=== PATIENT | male | born 1965 | race African-American/Black ===

== ENCOUNTER 2017-06-14 12:23 | Emergency (ER) | payer MEDICARE, MEDICAID ==
[~2017-06-14] VITALS: Ht 182.9 cm; Wt 100.0 kg
[~2017-06-14 12:23] MED LIST: LORA-249 PO; aspirin; gabapentin; hctz; lisinopril; metoprolol; zocor
[2017-06-14] MEDS ORDERED: MORPHINE SULFATE 4 MG/ML CPJ (NOT FOR IM USE) IV STA (13:07)
[2017-06-14] MEDS ORDERED: NITROGLYCERIN OINT 1GM/INCH UDPKT TD STA (13:07)
[2017-06-14] MEDS ORDERED: ASPIRIN 325MG EC TABLET PO ONE (13:15)
[2017-06-14] MEDS ORDERED: LORAZEPAM 2MG/ML CPJ IV ONE (13:15)
[2017-06-14 13:30] LABS: BASOPHILS % 1.1 % (0.0-2.0); EOSINOPHILS % 0.7 % (0.0-5.0); HEMATOCRIT. 46.7 % (42.0-52.0); HEMOGLOBIN. 15.9 g/dL (14.0-18.0); LYMPHOCYTES % 27.4 % (20.0-50.0); MEAN CORPUSCULAR HEMOGLOBIN 31.2 pg (28.0-32.0); MEAN CORPUSCULAR VOLUME 91.4 fL (80.0-94.0); MEAN PLATELET VOLUME 8.5 fl (7.4-10.4); NEUTROPHILS % 61.8 % (40.0-76.0); PLATELET 214 x1000/uL (130-400); RED BLOOD CELL COUNT 5.11 mill/uL (4.7-6.1); RED CELL DISTRIBUTION WIDTH 14.3 % (11.6-14.6)
[2017-06-14 13:41] LABS: CARBON DIOXIDE 30 mEq/L (21-32); CHLORIDE 105 mEq/L (98-107); TROPONIN I < 0.02 ng/mL (0.00-0.04)
[2017-06-14] MEDS ORDERED: MORPHINE SULFATE 10 MG/ML CPJ IM ONE (16:30)
[2017-06-14] MEDS ORDERED: DIPHENHYDRAMINE 50MG/ML VIAL IM ONE (16:30)
[2017-06-14 17:00] VITALS: BP 141/82
== END 2017-06-14 19:04 | disposition left against medical advice (07) ==
LOC: ER 13:21 → CANRESERV 18:09 → ENRESERV 18:09 → CANRESERV 18:15 → ER 19:04 → CANBEDREQ 21:20
DX: R07.89 Other chest pain (principal); R11.0 Nausea; M54.9 Dorsalgia, unspecified; G89.29 Other chronic pain; F41.9 Anxiety disorder, unspecified; I25.10 Atherosclerotic heart disease of native coronary artery without angina pectoris; I11.9 Hypertensive heart disease without heart failure; I25.2 Old myocardial infarction; Z79.82 Long term (current) use of aspirin; Z88.6 Allergy status to analgesic agent
CPT/HCPCS: 36415; 71010; 80053; 83690; 84484; 85025; 93005; 96372; 96374; 99285; J1200; J2060; J2270

== ENCOUNTER 2023-07-27 17:16 | Emergency (ER) | payer MEDICARE, MEDICAID ==
[~2023-07-27] VITALS: Ht 182.9 cm; Wt 109.0 kg
[2023-07-27 17:26] VITALS: TEMP 98.5; O2SAT 99
[2023-07-27 20:47] LABS: BASOPHILS % 0.7 % (0.0-2.0); EOSINOPHILS % 0.5 % (0.0-5.0); HEMATOCRIT. 45.7 % (42.0-52.0); HEMOGLOBIN. 15.6 g/dL (14.0-18.0); LYMPHOCYTES % 43.2 % (20.0-50.0); MEAN CORPUSCULAR HEMOGLOBIN 30.3 pg (28.0-32.0); MEAN CORPUSCULAR HGB CONC 34.1 g/dL (31.0-37.0); MONOCYTES % 9.4 % (2.0-8.0); NEUTROPHILS % 46.2 % (40.0-76.0); PLATELET 309 x1000/uL (130-400); RED BLOOD CELL COUNT 5.14 mill/uL (4.7-6.1); RED CELL DISTRIBUTION WIDTH 16.7 % (11.6-14.6); WHITE BLOOD COUNT 8.5 x1000/uL (4.5-11.0)
[2023-07-27 20:59] LABS: ALANINE AMINOTRANSFERASE 50 IU/L (10-49); ALBUMIN 4.2 g/dL (3.2-4.8); ASPARTATE AMINOTRANSFERASE 27 IU/L (<34); BILIRUBIN TOTAL 0.3 mg/dL (0.1-1.0); CARBON DIOXIDE 27 mEq/L (21-32); CHLORIDE 104 mEq/L (98-107); CREATININE 1.1 mg/dL (0.6-1.3); GLUCOSE 95 mg/dL (70-105); PROTEIN TOTAL 6.6 g/dL (6.0-8.3); SODIUM 139 mEq/L (136-145); UREA NITROGEN BLOOD 25 mg/dL (9-23)
[2023-07-27] MEDS ORDERED: HYDROMORPHONE HCL/PF 2MG/ML CPJ IM ONE ×2 (22:00→22:15)
[2023-07-27] MEDS ORDERED: DIPHENHYDRAMINE 50MG/ML VIAL IM ONE (22:00)
[2023-07-27] MEDS ORDERED: MED4 MT ×2 (22:11)
[2023-07-28] MEDS ORDERED: DIPHENHYDRAMINE 50MG/ML VIAL IM NR (00:15)
[2023-07-28 00:53] VITALS: BP 165/122; PULSE 110; RESP 16
[2023-07-28] MEDS ORDERED: HYDRALAZINE HCL 100MG TABLET PO ONE (01:30)
[2023-07-28] MEDS ORDERED: LABE200T9 PO (22:01)
[2023-07-28] MEDS ORDERED: HYDR100T26 PO (22:01)
[2023-07-28] MEDS ORDERED: FURO-151 PO (22:01)
[2023-07-28] MEDS ORDERED: GABA-532 PO (22:01)
[2023-07-28] MEDS ORDERED: CLON0.3T PO (22:01)
[2023-07-28] MEDS ORDERED: PREG200C PO (22:01)
== END 2023-07-27 22:08 | disposition home or self-care (01) ==
LOC: ER 17:16
DX: G35 Multiple sclerosis (principal); I10 Essential (primary) hypertension; Z79.899 Other long term (current) drug therapy; Z88.8 Allergy status to other drugs, medicaments and biological substances
CPT/HCPCS: 99284; 80053; 85025; 36415; J1170; 96372; J1200

== ENCOUNTER 2023-08-08 07:16 | Inpatient (IN) | payer MEDICARE, OTHER ==
[~2023-08-08] VITALS: Ht 180.3 cm; Wt 82.6 kg
[~2023-08-08 07:16] MED LIST changes: +CLON0.3T PO; +FURO-151 PO; +GABA-532 PO; +HYDR100T26 PO; +LABE200T9 PO; -LORA-249 PO; +PREG200C PO; -aspirin; -gabapentin; -hctz; -lisinopril; -metoprolol; -zocor
[2023-08-08] MEDS ORDERED: MORPHINE SULFATE 4 MG/ML CPJ (NOT FOR IM USE) IV STA (08:07)
[2023-08-08] MEDS ORDERED: ASPIRIN 325MG EC TABLET PO ONE (08:15)
[2023-08-08 10:00] LABS: BASOPHILS % 0.5 % (0.0-2.0); EOSINOPHILS % 0.1 % (0.0-5.0); HEMATOCRIT. 47.7 % (42.0-52.0); HEMOGLOBIN. 15.5 g/dL (14.0-18.0); LYMPHOCYTES % 15.6 % (20.0-50.0); MEAN CORPUSCULAR HEMOGLOBIN 30.3 pg (28.0-32.0); MEAN CORPUSCULAR HGB CONC 32.5 g/dL (31.0-37.0); MEAN CORPUSCULAR VOLUME 93.2 fL (80.0-94.0); MONOCYTES % 6.2 % (2.0-8.0); NEUTROPHILS % 77.6 % (40.0-76.0); RED BLOOD CELL COUNT 5.12 mill/uL (4.7-6.1); RED CELL DISTRIBUTION WIDTH 16.7 % (11.6-14.6); WHITE BLOOD COUNT 12.2 x1000/uL (4.5-11.0)
[2023-08-08 10:11] LABS: DIFFERENTIAL COMMENT 1
[2023-08-08 10:22] LABS: ALANINE AMINOTRANSFERASE 39 IU/L (10-49); ALBUMIN 4.6 g/dL (3.2-4.8); ASPARTATE AMINOTRANSFERASE 27 IU/L (<34); BILIRUBIN TOTAL 0.6 mg/dL (0.1-1.0); CALCIUM 9.8 mg/dL (8.7-10.4); CARBON DIOXIDE 21 mEq/L (21-32); CHLORIDE 103 mEq/L (98-107); CREATININE 0.9 mg/dL (0.6-1.3); GLUCOSE 117 mg/dL (70-105); POTASSIUM 4.3 mEq/L (3.5-5.1); PROTEIN TOTAL 7.2 g/dL (6.0-8.3); SODIUM 138 mEq/L (136-145); UREA NITROGEN BLOOD 13 mg/dL (9-23)
[2023-08-08 10:29] LABS: TROPONIN I HIGH SENSITIVITY 61 ng/L (3.0-53)
[2023-08-08 14:19] LABS: PLATELET 165 x1000/uL (130-400)
[2023-08-08] MEDS ORDERED: LIDOCAINE HCL 1% 10 MG/ML 10ML VIAL ONE (14:26)
[2023-08-08] MEDS ORDERED: IPRATROPIUM/ALBUTEROL 0.5-3(2.5)MG/3ML NEB HHN PRN (14:45)
[2023-08-08] MEDS ORDERED: MORPHINE SULFATE 2 MG/ML CPJ (NOT FOR IM USE) IV PRN (14:45)
[2023-08-08] MEDS ORDERED: ACETAMINOPHEN 325MG TABLET PO PRN ×2 (14:45)
[2023-08-08] MEDS ORDERED: CLONIDINE 0.1MG TABLET PO PRN (14:45)
[2023-08-08] MEDS ORDERED: ONDANSETRON HCL 4MG/2ML INJ IV PRN (14:45)
[2023-08-08] MEDS: ENOXAPARIN 40MG/0.4ML SYR SUBCUT SCH (15:00)
[2023-08-08] MEDS ORDERED: MORPHINE SULFATE 4 MG/ML CPJ (NOT FOR IM USE) IV NR (16:00)
[2023-08-08] MEDS ORDERED: ASPIRIN 325MG EC TABLET PO NR (16:00)
[2023-08-08 16:20] LABS: CLARITY URINE CLEAR (CLEAR); COLOR URINE YELLOW (YELLOW); GLUCOSE URINE NEGATIVE (NEGATIVE); KETONES URINE 2+ (NEGATIVE); LEUKOCYTE ESTERASE URINE NEGATIVE (NEGATIVE); NITRITE URINE NEGATIVE (NEGATIVE); OCCULT BLOOD URINE NEGATIVE (NEGATIVE); PROTEIN URINE 1+ (NEGATIVE); SPECIFIC GRAVITY URINE 1.018 (1.005-1.030); UROBILINOGEN URINE 0.2 E.U./dL (0.2-1.0)
[2023-08-08 16:33] LABS: *AMPHETAMINES SCREEN URINE NEGATIVE (NEGATIVE); *BARBITURATES SCREEN URINE NEGATIVE (NEGATIVE); *BENZODIAZEPINES SCREEN URINE NEGATIVE (NEGATIVE); *COCAINE SCREEN URINE PRESUMPTIVE POSITIVE (NEGATIVE); CANNABINOID URINE SCREEN PRESUMPTIVE POSITIVE (NEGATIVE); ECSTASY MDMA SCREEN URINE NEGATIVE (NEGATIVE); METHADONE URINE SCREEN Neg (NEGATIVE); OPIATES URINE SCREEN PRESUMPTIVE POSITIVE (NEGATIVE); PHENCYCLIDINE URINE SCREEN NEGATIVE (NEGATIVE)
[2023-08-08 16:42] LABS: BACTERIA URINE NONE SEEN; RBC URINE 0-2 /hpf (0-2); SQUAMOUS EPITHELIAL CELL URINE 1+ /lpf (RARE/1+); WBC URINE 0-2 /hpf (0-2)
[2023-08-08 16:43] LABS: HYALINE CASTS URINE 0-5 /lpf
[2023-08-08] MEDS: HYDROMORPHONE HCL/PF 2MG/ML CPJ IV PRN (18:44)
[2023-08-08] MEDS ORDERED: NALOXONE HCL 0.4MG/ML VIAL IV PRN (21:00)
[2023-08-08 21:30] VITALS: BP 184/129; PULSE 93; RESP 20; TEMP 97.7
[2023-08-08] MEDS: GABAPENTIN 300MG CAPSULE PO SCH (22:19)
[2023-08-08] MEDS: CLONIDINE 0.3MG TABLET PO SCH (22:20)
[2023-08-08] MEDS: HYDRALAZINE HCL 100MG TABLET PO SCH (22:20)
[2023-08-09] VITALS: BP 145/99; PULSE 92; RESP 21; TEMP 97.5
[2023-08-09 00:43] LABS: TROPONIN I HIGH SENSITIVITY 36 ng/L (3.0-53)
[2023-08-09 04:00] VITALS: BP 163/118; PULSE 82; RESP 21; TEMP 98.5
[2023-08-09 04:15] LABS: CALCIUM 8.9 mg/dL (8.7-10.4); CARBON DIOXIDE 24 mEq/L (21-32); CHLORIDE 105 mEq/L (98-107); GLUCOSE 106 mg/dL (70-105); SODIUM 142 mEq/L (136-145); UREA NITROGEN BLOOD 20 mg/dL (9-23)
[2023-08-09] MEDS: GABAPENTIN 300MG CAPSULE PO SCH ×3 (06:45→21:44)
[2023-08-09] MEDS: CLONIDINE 0.3MG TABLET PO SCH ×3 (06:45→21:44)
[2023-08-09] MEDS: HYDRALAZINE HCL 100MG TABLET PO SCH ×3 (06:45→21:45)
[2023-08-09 08:00] VITALS: BP 157/100; PULSE 58; RESP 18; TEMP 97
[2023-08-09] MEDS: FUROSEMIDE 40MG/4ML VIAL IV SCH (10:39)
[2023-08-09] MEDS: PREGABALIN 50 MG CAPSULE PO SCH (10:39)
[2023-08-09] MEDS: LABETALOL HCL 200MG TABLET PO SCH ×2 (10:41→21:45)
[2023-08-09] MEDS: ASPIRIN 81MG EC TABLET PO SCH (10:43)
[2023-08-09] MEDS: HYDROMORPHONE HCL/PF 2MG/ML CPJ IV PRN ×2 (10:45→17:58)
[2023-08-09 12:00] VITALS: BP 107/83; PULSE 66; RESP 18; TEMP 97.7
[2023-08-09] MEDS: ENOXAPARIN 40MG/0.4ML SYR SUBCUT SCH (15:41)
[2023-08-09 16:00] VITALS: BP 150/90; PULSE 72; RESP 18; TEMP 96.6
[2023-08-09 20:00] VITALS: BP 128/85; PULSE 80; RESP 20; TEMP 97.3
[2023-08-10] VITALS (7 sets, daily range): BP systolic 112–169; BP diastolic 70–98; PULSE 55–91; RESP 16–20; TEMP 96.1–97.9; O2SAT 98
[2023-08-10] MEDS: HYDROMORPHONE HCL/PF 2MG/ML CPJ IV PRN ×3 (00:40→16:59)
[2023-08-10] MEDS: HYDRALAZINE HCL 100MG TABLET PO SCH ×2 (05:50→10:06)
[2023-08-10] MEDS: CLONIDINE 0.3MG TABLET PO SCH ×2 (05:50→16:57)
[2023-08-10] MEDS: GABAPENTIN 300MG CAPSULE PO SCH ×2 (05:51→16:57)
[2023-08-10] MEDS: LABETALOL HCL 200MG TABLET PO SCH (09:00)
[2023-08-10] MEDS: PREGABALIN 50 MG CAPSULE PO SCH (10:06)
[2023-08-10] MEDS: FUROSEMIDE 40MG/4ML VIAL IV SCH (10:06)
[2023-08-10] MEDS: ASPIRIN 81MG EC TABLET PO SCH (10:06)
[2023-08-10] MEDS: ENOXAPARIN 40MG/0.4ML SYR SUBCUT SCH (16:58)
== END 2023-08-10 19:45 | disposition home or self-care (01) | DRG 917 ==
LOC: ER 07:16 → 5WST 11:43 → EDBEDREQ 11:46 → 8WST 20:42
PROVIDERS: ADMIT Preventive Medicine Clinical Informatics; ATTEND Preventive Medicine Clinical Informatics
PROC: 05HY33Z Insertion of Infusion Device into Upper Vein, Percutaneous Approach (ICD-10-PCS; principal; 2023-08-08)
PROC: B54MZZA Ultrasonography of Right Upper Extremity Veins, Guidance (ICD-10-PCS; 2023-08-08)
DX: T40.5X1A Poisoning by cocaine, accidental (unintentional), initial encounter (principal); I21.A1 Myocardial infarction type 2; I16.0 Hypertensive urgency; I11.0 Hypertensive heart disease with heart failure; I50.9 Heart failure, unspecified; F19.10 Other psychoactive substance abuse, uncomplicated; F10.20 Alcohol dependence, uncomplicated; F14.10 Cocaine abuse, uncomplicated; G35 Multiple sclerosis; Z79.899 Other long term (current) drug therapy; Z86.73 Personal history of transient ischemic attack (TIA), and cerebral infarction without residual deficits; Z79.82 Long term (current) use of aspirin; Y92.89 Other specified places as the place of occurrence of the external cause
CPT/HCPCS: 36415; 36573; 71045; 80048; 80053; 80305; 81003; 83880; 84484; 85025; 93005; 99285; C1725; J1170; J1650; J1940; J2270; J3490

== ENCOUNTER 2023-12-07 22:34 | Emergency (ER) | payer MEDICARE, OTHER ==
[~2023-12-07] VITALS: Ht 175.3 cm; Wt 100.0 kg
[2023-12-07 22:37] VITALS: TEMP 97.7; O2SAT 100
[2023-12-08 01:45] VITALS: BP 184/101; PULSE 114; RESP 18
[2023-12-08] MEDS: MORPHINE SULFATE 4 MG/ML INJ (FOR IV/IM USE) IM ONE (01:45)
== END 2023-12-08 01:40 | disposition home or self-care (01) ==
LOC: ER 22:34
DX: G89.29 Other chronic pain (principal); M54.9 Dorsalgia, unspecified; I11.0 Hypertensive heart disease with heart failure; I50.9 Heart failure, unspecified; I25.2 Old myocardial infarction; Z86.73 Personal history of transient ischemic attack (TIA), and cerebral infarction without residual deficits; Z79.899 Other long term (current) drug therapy
CPT/HCPCS: 99283; 96372; J2270

== ENCOUNTER 2024-01-22 06:25 | Emergency (ER) | payer MEDICARE, MEDICAID ==
[~2024-01-22] VITALS: Ht 182.9 cm; Wt 91.0 kg
[~2024-01-22 06:25] MED LIST changes: +ASPI-1160 PO; -FURO-151 PO; -GABA-532 PO; +GLIP5TAB22 PO; -HYDR100T26 PO; -LABE200T9 PO; -PREG200C PO; +PREG300C20 PO; +ROSU20TA2 PO; +[UNRECOGNIZED DRUG - CODE] PO
[2024-01-22 06:28] VITALS: O2SAT 96
[2024-01-22] MEDS ORDERED: MAGNESIUM/ALUMINUM HYDROXIDE/SIMETHICONE 30ML UDC PO ONE (07:00)
[2024-01-22] MEDS ORDERED: PANTOPRAZOLE 40MG DR TABLET PO ONE (07:00)
[2024-01-22 07:18] LABS: CARBON DIOXIDE 23 mEq/L (21-32); CHLORIDE 105 mEq/L (98-107); POTASSIUM 4.6 mEq/L (3.5-5.1); SODIUM 138 mEq/L (136-145)
[2024-01-22 07:19] LABS: CALCIUM 9.8 mg/dL (8.7-10.4)
[2024-01-22 07:24] LABS: CREATININE 1.3 mg/dL (0.6-1.3); GLUCOSE 306 mg/dL (70-105); TROPONIN I HIGH SENSITIVITY 27 ng/L (3.0-53); UREA NITROGEN BLOOD 22 mg/dL (9-23)
[2024-01-22 07:28] LABS: ETHANOL BLOOD < 10 mg/dL (<10)
[2024-01-22] MEDS: PANTOPRAZOLE 40MG DR TABLET PO NR (10:46)
[2024-01-22] MEDS: MAGNESIUM/ALUMINUM HYDROXIDE/SIMETHICONE 30ML UDC PO NR (10:46)
[2024-01-22 11:00] LABS: BASOPHILS % 0.5 % (0.0-2.0); EOSINOPHILS % 0.1 % (0.0-5.0); HEMATOCRIT. 45.3 % (42.0-52.0); HEMOGLOBIN. 14.8 g/dL (14.0-18.0); LYMPHOCYTES % 17.8 % (20.0-50.0); MEAN CORPUSCULAR HEMOGLOBIN 30.7 pg (28.0-32.0); MEAN CORPUSCULAR HGB CONC 32.6 g/dL (31.0-37.0); MEAN CORPUSCULAR VOLUME 94.3 fL (80.0-94.0); MEAN PLATELET VOLUME 8.3 fl (7.4-10.4); MONOCYTES % 8.7 % (2.0-8.0); NEUTROPHILS % 72.9 % (40.0-76.0); PLATELET 281 x1000/uL (130-400); RED CELL DISTRIBUTION WIDTH 16.4 % (11.6-14.6); WHITE BLOOD COUNT 10.9 x1000/uL (4.5-11.0)
[2024-01-22 11:07] LABS: CLARITY URINE CLEAR (CLEAR); COLOR URINE YELLOW (YELLOW); GLUCOSE URINE 3+ (NEGATIVE); KETONES URINE TRACE (NEGATIVE); LEUKOCYTE ESTERASE URINE NEGATIVE (NEGATIVE); NITRITE URINE NEGATIVE (NEGATIVE); OCCULT BLOOD URINE NEGATIVE (NEGATIVE); PROTEIN URINE 1+ (NEGATIVE); SPECIFIC GRAVITY URINE 1.025 (1.005-1.030); UROBILINOGEN URINE 0.2 E.U./dL (0.2-1.0)
[2024-01-22 11:15] LABS: PARTIAL THROMBOPLASTIN TIME 25.1 sec (23.4-31.0); PROTHROMBIN TIME 10.8 sec (9.6-11.0)
[2024-01-22 11:23] LABS: TROPONIN I HIGH SENSITIVITY 30 ng/L (3.0-53)
[2024-01-22 11:28] LABS: BACTERIA URINE TRACE; SQUAMOUS EPITHELIAL CELL URINE NONE SEEN /lpf (RARE/1+)
[2024-01-22 11:29] LABS: RBC URINE 0-2 /hpf (0-2); WBC URINE 0-2 /hpf (0-2)
[2024-01-22 11:30] LABS: *AMPHETAMINES SCREEN URINE NEGATIVE (NEGATIVE); *BARBITURATES SCREEN URINE NEGATIVE (NEGATIVE); *BENZODIAZEPINES SCREEN URINE NEGATIVE (NEGATIVE); *COCAINE SCREEN URINE PRESUMPTIVE POSITIVE (NEGATIVE); CANNABINOID URINE SCREEN PRESUMPTIVE POSITIVE (NEGATIVE); ECSTASY MDMA SCREEN URINE NEGATIVE (NEGATIVE); METHADONE URINE SCREEN NEGATIVE (NEGATIVE); OPIATES URINE SCREEN NEGATIVE (NEGATIVE); PHENCYCLIDINE URINE SCREEN NEGATIVE (NEGATIVE)
[2024-01-22] MEDS: ACETAMINOPHEN 1000MG/100ML 100 ML IV ONE (12:45)
[2024-01-22] MEDS: METHOCARBAMOL 750MG TABLET PO SCH (12:45)
[2024-01-22 14:12] VITALS: BP 149/101; PULSE 99; RESP 15; TEMP 98.8
== END 2024-01-22 15:30 | disposition home or self-care (01) ==
LOC: ER 06:25
DX: R07.89 Other chest pain (principal); R00.0 Tachycardia, unspecified; I50.9 Heart failure, unspecified; I25.2 Old myocardial infarction; Z79.899 Other long term (current) drug therapy
CPT/HCPCS: 36415; 71045; 80048; 80305; 80320; 81003; 83880; 84484; 85025; 93005; 99285; G0480; J0131

== ENCOUNTER 2025-01-28 00:30 | Inpatient (IN) | payer MEDICARE, MEDICAID ==
[~2025-01-28] VITALS: Ht 177.8 cm; Wt 107.7 kg
[2025-01-28 00:47] VITALS: O2SAT 99
[2025-01-28] MEDS ORDERED: MORPHINE SULFATE 4 MG/ML INJ (FOR IV/IM USE) IV STA (01:14)
[2025-01-28] MEDS ORDERED: METHYLPREDNISOLONE 40MG/ML INJ IV ONE (01:15)
[2025-01-28] MEDS: MORPHINE SULFATE 4 MG/ML INJ (FOR IV/IM USE) IV NR (03:14)
[2025-01-28] MEDS: ONDANSETRON HCL 4MG/2ML INJ IV STA (03:14)
[2025-01-28] MEDS: METHYLPREDNISOLONE SOD SUCC 1,000 MG in DEXT 5% WATER 250 ML IV NR (03:15)
[2025-01-28] MEDS: ONDANSETRON HCL 4MG/2ML INJ IV NR (03:21)
[2025-01-28] MEDS: SODIUM CHLORIDE 0.9% 1,000 ML IV ONE (03:21)
[2025-01-28] MEDS: DIPHENHYDRAMINE 50MG/ML VIAL IV ONE (03:24)
[2025-01-28 03:32] LABS: BASOPHILS % 0.6 % (0.0-2.0); EOSINOPHILS % 0.2 % (0.0-5.0); HEMATOCRIT. 42.0 % (42.0-52.0); HEMOGLOBIN. 13.9 g/dL (14.0-18.0); LYMPHOCYTES % 18.9 % (20.0-50.0); MEAN PLATELET VOLUME 7.7 fl (7.4-10.4); MONOCYTES % 8.3 % (2.0-8.0); NEUTROPHILS % 72.0 % (40.0-76.0); PLATELET 404 x1000/uL (130-400); RED BLOOD CELL COUNT 4.82 mill/uL (4.7-6.1); RED CELL DISTRIBUTION WIDTH 15.6 % (11.6-14.6)
[2025-01-28 03:52] LABS: CREATININE 1.1 mg/dL (0.6-1.3)
[2025-01-28 03:53] LABS: UREA NITROGEN BLOOD 14 mg/dL (9-23)
[2025-01-28 03:55] LABS: TROPONIN I HIGH SENSITIVITY 9 ng/L (3.0-53)
[2025-01-28] MEDS: MORPHINE SULFATE 4 MG/ML INJ (FOR IV/IM USE) IV ONE (04:30)
[2025-01-28] MEDS: DIPHENHYDRAMINE 50MG/ML VIAL IV NR (04:53)
[2025-01-28] MEDS ORDERED: CLONIDINE 0.1MG TABLET PO PRN (06:45)
[2025-01-28] MEDS: HYDROCODONE/ACETAMINOPHEN 10/325MG TABLET PO PRN (07:21)
[2025-01-28 08:00] VITALS: BP 156/110; PULSE 94; RESP 18; TEMP 36.5; O2SAT 97
[2025-01-28] MEDS: HYDRALAZINE HCL 100MG TABLET PO SCH (10:02)
[2025-01-28] MEDS: FUROSEMIDE 40MG TABLET PO SCH (10:02)
[2025-01-28] MEDS: METOPROLOL TARTRATE 50MG TABLET PO SCH (10:02)
[2025-01-28 12:00] VITALS: BP 132/90; PULSE 65; RESP 18; TEMP 36.6; O2SAT 97
[2025-01-28] MEDS: ENOXAPARIN 40MG/0.4ML SYR SUBCUT SCH (13:00)
[2025-01-28] MEDS: TAMSULOSIN HCL 0.4MG SR CAPSULE PO SCH (13:36)
[2025-01-28] MEDS ORDERED: NALOXONE HCL 0.4MG/ML VIAL IV PRN (14:30)
[2025-01-28 16:00] VITALS: BP 134/79; PULSE 71; RESP 18; TEMP 36.6; O2SAT 97
[2025-01-28 20:00] VITALS: BP 133/76; PULSE 83; RESP 20; TEMP 35.9; O2SAT 95
[2025-01-28] MEDS: ENOXAPARIN 30MG/0.3ML SYR SUBCUT SCH (21:33)
[2025-01-28] MEDS: ZOLPIDEM TARTRATE 5MG TABLET PO PRN (21:34)
[2025-01-28] MEDS: ATORVASTATIN CALCIUM 40MG TABLET PO SCH (21:34)
[2025-01-28 21:40] LABS: *AMPHETAMINES SCREEN URINE NEGATIVE (NEGATIVE); *BARBITURATES SCREEN URINE NEGATIVE (NEGATIVE); *BENZODIAZEPINES SCREEN URINE NEGATIVE (NEGATIVE); *COCAINE SCREEN URINE PRESUMPTIVE POSITIVE (NEGATIVE); CANNABINOID URINE SCREEN PRESUMPTIVE POSITIVE (NEGATIVE); ECSTASY MDMA SCREEN URINE NEGATIVE (NEGATIVE); METHADONE URINE SCREEN NEGATIVE (NEGATIVE); OPIATES URINE SCREEN PRESUMPTIVE POSITIVE (NEGATIVE); PHENCYCLIDINE URINE SCREEN NEGATIVE (NEGATIVE)
[2025-01-29] VITALS: BP 141/78; PULSE 86; RESP 20; TEMP 35.8; O2SAT 96
[2025-01-29 04:00] VITALS: BP 141/72; PULSE 82; RESP 20; TEMP 36.2; O2SAT 97
[2025-01-29 08:00] VITALS: BP 137/93; PULSE 58; RESP 18; TEMP 36.3; O2SAT 98
[2025-01-29 12:00] VITALS: BP 124/67; PULSE 62; RESP 18; TEMP 36.7; O2SAT 98
[2025-01-29] MEDS ORDERED: NALOXONE HCL 0.4MG/ML VIAL IV PRN (12:15)
[2025-01-29] MEDS: OXYCODONE HCL/ACETAMINOPHEN 5/325MG TABLET PO PRN (14:45)
[2025-01-29 16:00] VITALS: BP 142/73; PULSE 67; RESP 18; TEMP 36.7; O2SAT 98
[2025-01-29] MEDS: METHYLPREDNISOLONE SOD SUCC 500 MG in DEXT 5% WATER 100 ML IV SCH (16:46)
[2025-01-29 20:00] VITALS: BP 146/74; PULSE 68; RESP 18; TEMP 36.8; O2SAT 98
[2025-01-29] MEDS ORDERED: MORPHINE SULFATE/PF 1 MG/ML 100 MG in BAG 1 EACH IV PRN (22:15)
[2025-01-30] VITALS: BP 148/91; PULSE 77; RESP 18; TEMP 36.7; O2SAT 99
[2025-01-30] MEDS: MORPHINE SULFATE 2 MG/ML INJ (NOT FOR IM USE) IV NR ×2 (00:45→11:43)
[2025-01-30 04:00] VITALS: BP 147/73; PULSE 73; RESP 18; TEMP 36.6; O2SAT 99
[2025-01-30 08:00] VITALS: BP 145/92; PULSE 65; RESP 18; TEMP 36.4; O2SAT 96
[2025-01-30] MEDS ORDERED: NALOXONE HCL 0.4MG/ML VIAL IV PRN (11:30)
[2025-01-30 12:00] VITALS: BP 163/79; PULSE 67; RESP 18; TEMP 36.4; O2SAT 97
[2025-01-30] MEDS: DIPHENHYDRAMINE 50MG CAPSULE PO PRN (12:41)
[2025-01-30 16:00] VITALS: BP 161/78; PULSE 70; RESP 20; TEMP 36.1; O2SAT 98
[2025-01-30] MEDS: HYDROMORPHONE HCL 2MG TABLET PO SCH (16:45)
[2025-01-30 20:00] VITALS: BP 169/85; PULSE 75; RESP 18; TEMP 36.7; O2SAT 99
[2025-01-30] MEDS: OXYCODONE HCL/ACETAMINOPHEN 5/325MG TABLET PO PRN (21:23)
[2025-01-31] VITALS: BP 148/74; PULSE 74; RESP 18; TEMP 36.6; O2SAT 98
[2025-01-31 04:00] VITALS: BP 155/95; PULSE 75; RESP 18; TEMP 37.1; O2SAT 97
[2025-01-31 08:00] VITALS: BP 142/71; PULSE 57; RESP 18; TEMP 36.5; O2SAT 98
[2025-01-31 12:00] VITALS: BP 147/80; PULSE 61; RESP 18; TEMP 36.6; O2SAT 98
== END 2025-01-31 14:00 | disposition home or self-care (01) | DRG 291 ==
LOC: ER 00:30 → EDBEDREQ 01:19 → 6WST 04:14 → EDBEDREQ 04:16 → ENRESERV 04:39
PROVIDERS: ADMIT Internal Medicine; ATTEND Internal Medicine
DX: I11.0 Hypertensive heart disease with heart failure (principal); I50.33 Acute on chronic diastolic (congestive) heart failure; G35 Multiple sclerosis; E66.9 Obesity, unspecified; E78.00 Pure hypercholesterolemia, unspecified; F32.A Depression, unspecified; G89.4 Chronic pain syndrome; F17.210 Nicotine dependence, cigarettes, uncomplicated; Z76.5 Malingerer [conscious simulation]; Z86.74 Personal history of sudden cardiac arrest
CPT/HCPCS: 36415; 71045; 80048; 80305; 83605; 83880; 84484; 85025; 93005; 93970; 99291; A4606; G0378; J1200; J1650; J2270; J2405; J2919; J2930; J7030; J7060; Q0163